=== PATIENT | female | born 1995 | race Caucasian/White ===

== ENCOUNTER 2021-03-23 12:05 | Emergency (ER) | payer BC ==
[~2021-03-23] VITALS: Ht 175 cm; Wt 99.0 kg
[2021-03-23 13:24] LABS: BASOPHILS % (AUTO) 0 % (0-10); EOSINOPHILS # (AUTO) 0.1 10^3/uL (0.0-0.3); EOSINOPHILS % (AUTO) 1 % (0-10); HEMATOCRIT 39 % (35-52); HEMOGLOBIN 13.2 g/dL (11.5-16.0); LYMPHOCYTES # (AUTO) 2.2 10^3/uL (1.0-4.0); LYMPHOCYTES % (AUTO) 21 % (12-44); MEAN CORPUSCULAR HEMOGLOBIN 30 pg (25-34); MEAN CORPUSCULAR HGB CONC 34 g/dL (32-36); MEAN CORPUSCULAR VOLUME 89 fL (80-99); MEAN PLATELET VOLUME 9.6 fL (9.0-12.2); MONOCYTES # (AUTO) 0.5 10^3/uL (0.0-1.0); MONOCYTES % (AUTO) 5 % (0-12); NEUTROPHILS # (AUTO) 7.5 10^3/uL (1.8-7.8); NEUTROPHILS % (AUTO) 73 % (42-75); PLATELET COUNT 301 10^3/uL (130-400); WHITE BLOOD COUNT 10.3 10^3/uL (4.3-11.0)
[2021-03-23 13:40] LABS: ALBUMIN 4.1 GM/DL (3.2-4.5)
[2021-03-23 13:41] LABS: CALCIUM 9.4 MG/DL (8.5-10.1)
[2021-03-23 13:43] LABS: TOTAL PROTEIN 6.9 GM/DL (6.4-8.2)
[2021-03-23 13:44] LABS: BILIRUBIN,TOTAL 0.3 MG/DL (0.1-1.0)
[2021-03-23 13:46] LABS: CREATININE SERUM 0.78 MG/DL (0.60-1.30)
[2021-03-23] MEDS ORDERED: HYDROcodone/APAP 5 MG/325 MG (LORTAB) TAB PO ONE (14:15)
--- NOTE | 2021-03-23 14:21 | Diagnostic Imaging Report ---
INDICATION: Vaginal bleeding and cramping. FINDINGS: The uterus measures 8.6 x 5.2 x 4.2 cm. No myometrial mass is identified. There is complex mobile debris throughout the endometrial canal. There is a cystic structure in the lower uterine segment near the endocervical canal, which may represent a partially collapsed gestational sac. There is a questionable yolk sac present within this collection. No definite pole is seen. This was mobile and did appear to pass during the transvaginal study. Right ovary measures 3.1 x 2.0 x 3.1 cm, and left ovary measures 3.6 x 3.0 x 3.4 cm. Left ovary does contain a 2.5 x 2.3 x 1.4 cm cyst. There is blood flow to the ovaries. No free fluid is seen. IMPRESSION: Abnormally thickened and heterogeneous endometrium containing mobile debris, likely representing blood products. There was a questionable gestational sac near the endocervical canal containing a yolk sac visualized during the study. This did not move through the endocervical canal and pass during the study. Features are suggestive of ongoing spontaneous . No adnexal is identified. No other abnormalities are seen apart from simple-appearing left ovarian cyst. Dictated by: Dictated on workstation # [id number]
--- NOTE | 2021-03-23 14:36 | ED GU-Female ---
General Chief Complaint: OB < 20 WEEKS Stated Complaint: VAGINAL BLEEDING,CRAMPING, 6-7 WEEKS PREG Nursing Triage Note: PT AMB TO [facility] PT CO OF STARTING OF BLEEDING AND SPOTTING AT APPROX 0900 THIS AM. PT ALSO HAVING CRAMPING. PT STATES IS APPROX 6-7 WEEKS Source: patient Exam Limitations: no limitations (LENNY LOWE) History of Present Illness Date Seen by Provider: Mar 23, 2021 Time Seen by Provider: 13:10 Initial Comments Patient is a 26-year-old female who presents to ED with lower abdominal cramping, vaginal bleeding. Last menstrual cycle was January 30. Started Velp cramping today with vaginal spotting described as bright red with heavier passing clots while sitting in the waiting room. Patient is G1, P0. Denies any urinary symptoms, vaginal discharge or concern for significant infection. She did have some vomiting few weeks ago which has resolved. No known medical problems. Patient does not currently have an OPERATIONAL INTELLIGENCE OFFICER. Patient believes she is 6 to 7 weeks with 3+ test out patiently. No known blood disorders. Kayode es fever, chills, chest pain, shortness of breath, headache, dizziness. (LENNY LOWE) Allergies and Home Medications Allergies Coded Allergies: Sulfa (Sulfonamide Antibiotics) (Verified Allergy, Unknown, 03/23/21) morphine (Verified Allergy, Unknown, 03/23/21) Patient Home Medication List Home Medication List Reviewed: Yes (LENNY LOWE) Hydrocodone/Acetaminophen (Hydrocodone-Acetamin 5-325 mg) 1 Each Tablet, 1 TAB PO Q4H PRN for PAIN-MODERATE (5-7) Prescribed by: MEGAN HAMM on 03/23/21 1518 Review of Systems Review of Systems Constitutional: No chills, No diaphoresis, No malaise, No weakness EENTM: No ear pain, No eye pain Respiratory: No cough, No hemoptysis, No short of breath Gastrointestinal: abdominal pain; No nausea, No vomiting Genitourinary: other (Vaginal bleeding) : Yes LMP: Jan 30, 2021 Musculoskeletal: No back pain, No joint pain, No joint swelling, No muscle pain Skin: No change in color, No change in hair/nails Psychiatric/Neurological: Denies Depressed, Denies Headache (LENNY LOWE) Past Dmjoomv-Tsvzgq-Vpvpma Hx Patient Social History Tobacco Use?: No Substance use?: No Alcohol Use?: No Pt feels they are or have been: No (LENNY LOWE) Past Medical History Last Menstrual Period: Jan 30, 2021 (LENNY LOWE) Physical Exam Vital Signs Vital Signs - First Documented 03/23/21 03/23/21 12:30 15:43 Temp 36.5 Pulse 88 Resp 18 B/P (MAP) 141/81 (101) Pulse Ox 97 O2 Delivery Room Air (TIMOTHY NORRIS MD) Vital Signs Capillary Refill : Less Than 3 Seconds (LENNY LOWE) Height, Weight, BMI Height: '" Weight: lbs. oz. kg; 32.00 BMI Method: General Appearance: WD/WN HEENT: PERRL/EOMI, normal ENT inspection, TMs normal, pharynx normal Neck: non-tender, full range of motion, supple Cardiovascular: regular rate, rhythm, no edema, no gallop, no JVD, no murmur Respiratory: lungs clear, normal breath sounds, no respiratory distress, no accessory muscle use Gastrointestinal: normal bowel sounds, non tender, soft, no organomegaly Back: normal inspection, no CVA tenderness, no vertebral tenderness Extremities: normal range of motion, non-tender, normal inspection, no pedal edema Skin: normal color, warm/dry (LENNY LOWE) Progress/Results/Core Measures Suspected Sepsis SIRS Temperature: Pulse: 88 Respiratory Rate: 18 Laboratory Tests 03/23/21 13:13: White Blood Count 10.3 Blood Pressure 141 /81 Mean: 101 Laboratory Tests 03/23/21 13:13: Creatinine 0.78, Platelet Count 301, Total Bilirubin 0.3 (LENNY LOWE) Results/Orders Lab Results Laboratory Tests Test 03/23/21 13:13 03/23/21 14:45 Range/Units White Blood Count 10.3 4.3-11.0 10^3/uL Red Blood Count 4.34 3.80-5.11 10^6/uL Hemoglobin 13.2 11.5-16.0 g/dL Hematocrit 39 35-52 % Mean Corpuscular Volume 89 80-99 fL Mean Corpuscular Hemoglobin 30 25-34 pg Mean Corpuscular Hemoglobin Concent 34 32-36 g/dL Red Cell Distribution Width 12.4 10.0-14.5 % Platelet Count 301 130-400 10^3/uL Mean Platelet Volume 9.6 9.0-12.2 fL Immature Granulocyte % (Auto) 0 % Neutrophils (%) (Auto) 73 42-75 % Lymphocytes (%) (Auto) 21 12-44 % Monocytes (%) (Auto) 5 0-12 % Eosinophils (%) (Auto) 1 0-10 % Basophils (%) (Auto) 0 0-10 % Neutrophils # (Auto) 7.5 1.8-7.8 10^3/uL Lymphocytes # (Auto) 2.2 1.0-4.0 10^3/uL Monocytes # (Auto) 0.5 0.0-1.0 10^3/uL Eosinophils # (Auto) 0.1 0.0-0.3 10^3/uL Basophils # (Auto) 0.0 0.0-0.1 10^3/uL Immature Granulocyte # (Auto) 0.0 0.0-0.1 10^3/uL Sodium Level 140 135-145 MMOL/L Potassium Level 4.0 3.6-5.0 MMOL/L Chloride Level 105 98-107 MMOL/L Carbon Dioxide Level 25 21-32 MMOL/L Anion Gap 10 5-14 MMOL/L Blood Urea Nitrogen 12 7-18 MG/DL Creatinine 0.78 0.60-1.30 MG/DL Estimat Glomerular Filtration Rate 91 BUN/Creatinine Ratio 15 Glucose Level 103 70-105 MG/DL Calcium Level 9.4 8.5-10.1 MG/DL Corrected Calcium 9.3 8.5-10.1 MG/DL Total Bilirubin 0.3 0.1-1.0 MG/DL Aspartate Amino Transf (AST/SGOT) 12 5-34 U/L Alanine Aminotransferase (ALT/SGPT) 21 0-55 U/L Alkaline Phosphatase 73 40-136 U/L Total Protein 6.9 6.4-8.2 GM/DL Albumin 4.1 3.2-4.5 GM/DL Human Chorionic Gonadotropin, Quant 937 H <5 MIU/ML Urine Color YELLOW Urine Clarity CLEAR Urine pH 6.5 5-9 Urine Specific [place] <=1.005 1.016-1.022 Urine Protein NEGATIVE NEGATIVE Urine Glucose (UA) NEGATIVE NEGATIVE Urine Ketones TRACE H NEGATIVE Urine Nitrite NEGATIVE NEGATIVE Urine Bilirubin NEGATIVE NEGATIVE Urine Urobilinogen 0.2 < = 1.0 MG/DL Urine Leukocyte Esterase NEGATIVE NEGATIVE Urine RBC (Auto) 3+ H NEGATIVE Urine RBC 10-25 H /HPF Urine WBC NONE /HPF Urine Crystals NONE /LPF Urine Bacteria NEGATIVE /HPF Urine Casts NONE /LPF Urine Mucus NEGATIVE /LPF Urine Culture Indicated NO Urine Test POSITIVE NEGATIVE (TIMOTHY NORRIS MD) Medications Given in ED Current Medications Medications Dose Ordered Sig/Marie Route Start Time Stop Time Status Last Admin Dose Admin Acetaminophen/ Hydrocodone Bitart 1 ea ONCE ONCE PO 03/23/21 14:15 03/23/21 14:16 DC 03/23/21 14:13 1 EA (TIMOTHY NORRIS MD) Vital Signs/I&O 03/23/21 03/23/21 12:30 15:43 Temp 36.5 Pulse 88 83 Resp 18 18 B/P (MAP) 141/81 (101) 128/77 Pulse Ox 97 98 O2 Delivery Room Air (TIMOTHY NORRIS MD) Vital Signs/I&O Capillary Refill : Less Than 3 Seconds (LENNY LOWE) Blood Pressure Mean: 101 Departure Communication (Admissions) Vaginal blood with clots noted through the vaginal canal. Ultrasound concerning for spontaneous . No evidence of adnexal mass. Patient beta quant 937. G1, P0. Lower abdominal discomfort. Patient Was given dose of pain medication. She is not anemic. Urinalysis negative for infection. Not concern for sexual transmitted infection. Recommend outpatient OPERATIONAL INTELLIGENCE OFFICER follow-up for further evaluation. Discharge with pain medication. If any worsening symptoms strongly recommend return back to ED. patient Rh+ (LENNY LOWE) Impression Primary Impression: Threatened miscarriage Disposition: 01 HOME, SELF-CARE Condition: Stable Departure-Patient Inst. Decision time for Depature: 15:06 (LENNY LOWE) Referrals: DEVANG LEE MD NO,LOCAL PHYSICIAN (PCP) Primary Care Physician Patient Instructions: Threatened Miscarriage (DC) Add. Discharge Instructions: Need to follow-up with OPERATIONAL INTELLIGENCE OFFICER for further evaluation. All discharge instructions reviewed with patient and/or family. Voiced understanding. Scripts Hydrocodone/Acetaminophen (Hydrocodone-Acetamin 5-325 mg) 1 Each Tablet 1 TAB PO Q4H PRN for PAIN-MODERATE (5-7), #8 TAB Prov: LENNY LOWE 03/23/21 ATTENDING PHYSICIAN NOTE: I was physically present as attending physician in the emergency department during the care of this patient, but I was not directly involved in the decision making or delivery of care for this patient. (TIMOTHY NORRIS MD) LENNY LOWE Mar 23, 2021 14:36 TIMOTHY NORRIS MD Mar 23, 2021 20:24
[2021-03-23 14:52] LABS: BILIRUBIN,URINE NEGATIVE (NEGATIVE); CLARITY,URINE CLEAR; COLOR,URINE YELLOW; GLUCOSE, URINE (UA) NEGATIVE (NEGATIVE); KETONES,URINE TRACE (NEGATIVE); LEUKOCYTE ESTERASE ,URINE NEGATIVE (NEGATIVE); NITRITE,URINE NEGATIVE (NEGATIVE); PH,URINE 6.5 (5-9); PROTEIN,URINE NEGATIVE (NEGATIVE)
[2021-03-23 14:58] LABS: BACTERIA,URINE NEGATIVE /HPF
[2021-03-23] MEDS ORDERED: ACHD5005 PO (15:17)
[2021-03-23 15:43] VITALS: BP 128/77
== END 2021-03-23 15:43 | disposition home or self-care (01) ==
LOC: ER 12:09
DX: O20.0 Threatened abortion (principal); Z3A.00 Weeks of gestation of pregnancy not specified
CPT/HCPCS: 36415; 76801; 76817; 80053; 81000; 84702; 84703; 85025; 86900; 86901

== ENCOUNTER → 2021-08-05 | Outpatient (CLI) | payer BC ==
[~2021-08-05] MED LIST: ACHD5005 PO
== END ==
LOC: LABNPT 11:45
PROVIDERS: ATTEND Obstetrics & Gynecology
DX: Z32.01 Encounter for pregnancy test, result positive (principal)

== ENCOUNTER → 2021-08-19 | Outpatient (CLI) | payer BC ==
--- NOTE | 2021-08-19 13:00 | Diagnostic Imaging Report ---
INDICATION: survey. TECHNIQUE: Multiple real-time grayscale images were obtained over the gravid uterus. COMPARISON: None FINDINGS: There is a single live fetus in a cephalic presentation. heart rate was recorded at 156 bpm. Placenta is posterior and fundal. Amniotic fluid volume is normal. Cervical length is 3.5 cm. survey demonstrates kidneys, bladder and stomach to be unremarkable. The brain is unremarkable. There is a four-chamber heart. There is a three-vessel cord with normal insertion. spine is unremarkable. Biometrical measurements are as follows: Biparietal 4.89 cm, age 20 weeks 6 days. Head circumference 18.43 cm, age 20 weeks 6 days. Abdominal circumference 15.95 cm, age 21 weeks 1 days. Femur length 3.34 cm, age 20 weeks 4 days. Sonographic estimate age: 20 weeks 6 days. Sonographic estimated date of delivery: 12/31/2021. Estimated Weight: 378 gm (+/- 56 gm). LMP percentile: 81%. heart rate: 156 beats per minute. number: 1 of 1. IMPRESSION: Single live IUP measuring 20 weeks 6 days gestational age. Estimated date of confinement sonographically is 12/31/2021. Dictated by: Dictated on workstation # [id number]
== END ==
LOC: RAD 10:00
PROVIDERS: ATTEND Obstetrics & Gynecology
DX: Z34.02 Encounter for supervision of normal first pregnancy, second trimester (principal); Z3A.20 20 weeks gestation of pregnancy
CPT/HCPCS: 76805

== ENCOUNTER 2021-12-29 19:00 | Inpatient (IN) | payer BC ==
[~2021-12-29] VITALS: Ht 174 cm; Wt 111.3 kg
[2021-12-29] MEDS ORDERED: TERBUTALINE INJ 1 MG/ML (BRETHINE) AMP SC PRN (19:30)
[2021-12-29] MEDS ORDERED: NS IV 1000 ML 1,000 ML ONE (19:36)
[2021-12-29 19:43] VITALS: BP 138/82
[2021-12-29] MEDS ORDERED: NS IV 1000 ML 1,000 ML IV SCH (20:00)
[2021-12-29 20:11] LABS: BASOPHILS % (AUTO) 0 % (0-10); EOSINOPHILS # (AUTO) 0.1 10^3/uL (0.0-0.3); EOSINOPHILS % (AUTO) 1 % (0-10); HEMATOCRIT 35 % (35-52); LYMPHOCYTES # (AUTO) 2.6 10^3/uL (1.0-4.0); LYMPHOCYTES % (AUTO) 20 % (12-44); MEAN CORPUSCULAR HEMOGLOBIN 30 pg (25-34); MEAN CORPUSCULAR HGB CONC 34 g/dL (32-36); MEAN CORPUSCULAR VOLUME 88 fL (80-99); MEAN PLATELET VOLUME 10.4 fL (9.0-12.2); MONOCYTES # (AUTO) 0.7 10^3/uL (0.0-1.0); MONOCYTES % (AUTO) 6 % (0-12); NEUTROPHILS # (AUTO) 9.1 10^3/uL (1.8-7.8); NEUTROPHILS % (AUTO) 72 % (42-75); PLATELET COUNT 244 10^3/uL (130-400); WHITE BLOOD COUNT 12.7 10^3/uL (4.3-11.0)
[2021-12-29 20:23] LABS: CLARITY,URINE CLEAR; COLOR,URINE YELLOW
[2021-12-29 20:24] LABS: BILIRUBIN,URINE NEGATIVE (NEGATIVE); GLUCOSE, URINE (UA) NEGATIVE (NEGATIVE); KETONES,URINE NEGATIVE (NEGATIVE); LEUKOCYTE ESTERASE ,URINE NEGATIVE (NEGATIVE); NITRITE,URINE NEGATIVE (NEGATIVE); PROTEIN,URINE NEGATIVE (NEGATIVE)
[2021-12-29 20:25] LABS: BACTERIA,URINE MODERATE /HPF; RBC,URINE 0-2 /HPF; SQUAMOUS EPITHELIAL CELL,UR 0-2 /HPF; WBC,URINE 0-2 /HPF
[2021-12-29] MEDS ORDERED: D5 LR IV SOLUTION 1,000 ML IV ONE (20:53)
[2021-12-29] MEDS: D5 LR IV SOLUTION 1,000 ML IV SCH (20:58)
[2021-12-29 23:50] VITALS: BP 132/84
[2021-12-30] VITALS (32 sets, daily range): BP systolic 107–148; BP diastolic 52–85
[2021-12-30] MEDS ORDERED: HYDROmorphone 2 MG/ML VIAL (DILAUDID) IV ONE ×2 (02:00→06:15)
[2021-12-30] MEDS ORDERED: HYDROmorphone 2 MG/ML VIAL (DILAUDID) ONE ×2 (02:04→06:11)
[2021-12-30] MEDS: CATHETER FLUSH 10 ML SYR IV SCH ×3 (02:16→14:34)
[2021-12-30] MEDS: D5 LR IV SOLUTION 1,000 ML IV SCH ×2 (04:56→11:07)
[2021-12-30] MEDS ORDERED: OXYTOCIN PRE-MIX DRIP 500 ML IV ONE (06:11)
[2021-12-30] MEDS ORDERED: OXYTOCIN PRE-MIX DRIP 500 ML IV SCH (06:15)
--- NOTE | 2021-12-30 07:41 | History & Physical-OB ---
DONOVAN ARIZAULTON 12/30/21 0741: OB - Chief Complaint & HPI Date/Time Date of Admission: Date of Admission: Dec 29, 2021 at 19:15 Date seen by a Provider: Dec 30, 2021 Time Seen by a Provider: 07:15 Chief Complaint/History OB-Reason for Admission/Chief: Induction of Labor Hx : 1 Hx Para: 0 Expected Date of Delivery: Jan 05, 2022 Gestational Age in Weeks: 39 Gestational Age in Days: 1 Indication for induction: other (elective) History of Labs GBS - RNI Hep B - RPR - HIV - Allergies and Home Medications Allergies Coded Allergies: Sulfa (Sulfonamide Antibiotics) (Verified Allergy, Unknown, 03/23/21) morphine (Verified Allergy, Unknown, 03/23/21) Patient Home Medication List Home Medication List Reviewed: Yes Hydrocodone/Acetaminophen (Hydrocodone-Acetamin 5-325 mg) 1 Each Tablet, 1 TAB PO Q4H PRN for PAIN-MODERATE (5-7) Prescribed by: MEGAN HAMM on 03/23/21 1518 OB - History Hx of Present Care: Yes Ultrasounds: Normal mid trimester US Obstetrical Complications: None Medical Complications: None Information Induced Hypertension: No Maternal Gestational Diabetes: No Hemorrhage: No Obstetrical History Hx : 1 Hx Para: 0 Hx Complication: No Hx Maternal Gestational Diabet: No Hx Hemorrhage: No Patient Past Medical History allergice to pertussis vaccine misscarage last year (2020) Rubella not immune Social History/Family History Alcohol Use: Denies Use Recreational Drug Use: No Smoking Cessation: Never smoker 2nd Hand Smoke Exposure: No Immunizations Influenza Vaccine Up-to-Date: No; Not Current Hepatitis A: Yes Hepatitis B: Yes Tetanus Booster (TDap): Unknown (allergic to vaccine) Rubella: not immune RPR/VDRL: Negative GBS Status: Negative HBsAG: Negative OB - Admission Exam Physical Exam Vitals: Vital Signs 12/30/21 12/30/21 03:50 06:25 Temp 36.4 Pulse 69 Resp 16 B/P (MAP) 128/74 (92) Pulse Ox 99 O2 Delivery Room Air HEENT: NCAT Heart: Rhythm Normal Lungs: Clear Abdomen: Gravid Extremities: Normal Cervical Dilatation: 1cm (@0700) Membranes: Ruptured Heart Rate: 130's Decelerations: No Decelerations Contractions on Admission: >10 Minutes Apart Intensity: Firm Labs Laboratory Tests Test 12/29/21 19:45 Range/Units White Blood Count 12.7 H 4.3-11.0 10^3/uL Red Blood Count 4.03 3.80-5.11 10^6/uL Hemoglobin 12.0 11.5-16.0 g/dL Hematocrit 35 35-52 % Mean Corpuscular Volume 88 80-99 fL Mean Corpuscular Hemoglobin 30 25-34 pg Mean Corpuscular Hemoglobin Concent 34 32-36 g/dL Red Cell Distribution Width 14.4 10.0-14.5 % Platelet Count 244 130-400 10^3/uL Mean Platelet Volume 10.4 9.0-12.2 fL Immature Granulocyte % (Auto) 1 % Neutrophils (%) (Auto) 72 42-75 % Lymphocytes (%) (Auto) 20 12-44 % Monocytes (%) (Auto) 6 0-12 % Eosinophils (%) (Auto) 1 0-10 % Basophils (%) (Auto) 0 0-10 % Neutrophils # (Auto) 9.1 H 1.8-7.8 10^3/uL Lymphocytes # (Auto) 2.6 1.0-4.0 10^3/uL Monocytes # (Auto) 0.7 0.0-1.0 10^3/uL Eosinophils # (Auto) 0.1 0.0-0.3 10^3/uL Basophils # (Auto) 0.0 0.0-0.1 10^3/uL Immature Granulocyte # (Auto) 0.1 0.0-0.1 10^3/uL Urine Color YELLOW Urine Clarity CLEAR Urine pH 6.0 5-9 Urine Specific [place] <=1.005 1.016-1.022 Urine Protein NEGATIVE NEGATIVE Urine Glucose (UA) NEGATIVE NEGATIVE Urine Ketones NEGATIVE NEGATIVE Urine Nitrite NEGATIVE NEGATIVE Urine Bilirubin NEGATIVE NEGATIVE Urine Urobilinogen 0.2 < = 1.0 MG/DL Urine Leukocyte Esterase NEGATIVE NEGATIVE Urine RBC (Auto) NEGATIVE NEGATIVE Urine RBC 0-2 /HPF Urine WBC 0-2 /HPF Urine Squamous Epithelial Cells 0-2 /HPF Urine Renal Epithelial Cells NONE /HPF Urine Crystals NONE /LPF Urine Bacteria MODERATE H /HPF Urine Casts NONE /LPF Urine Mucus NEGATIVE /LPF Urine Culture Indicated YES OB - Assessment/Plan/Diagnosis Assessment Assessment: induction of labor Admission Dx 23 F induction of labor Admission Status: Inpatient Order (span 2 midnights) Reason for Inpatient Admission: 25 F induction of labor Plan Plan: Induction Induction Method: per Pitocin Protocol JOSEF DHILLON DO 12/30/21 1306: Allergies and Home Medications Allergies Coded Allergies: Sulfa (Sulfonamide Antibiotics) (Verified Allergy, Unknown, 03/23/21) morphine (Verified Allergy, Unknown, 03/23/21) Patient Home Medication List Hydrocodone/Acetaminophen (Hydrocodone-Acetamin 5-325 mg) 1 Each Tablet, 1 TAB PO Q4H PRN for PAIN-MODERATE (5-7) Prescribed by: MEGAN HAMM on 03/23/21 1518 OB - Assessment/Plan/Diagnosis Plan Other Plan Verification and Attestation of Medical Student E/M Service A medical student performed and documented this service in my presence. I reviewed and verified all information documented by the medical student and made modifications to such information, when appropriate. I personally performed the physical exam and medical decision making. Josef Dhillon, Dec 30, 2021,13:07 ILIR ARIZA Dec 30, 2021 07:41 JOSEF DHILLON DO Dec 30, 2021 13:06
[2021-12-30] MEDS ORDERED: LACTATED RINGERS 1,000 ML IV ONE (08:07)
[2021-12-30] MEDS ORDERED: fentaNYL 2 mcg/ml BUPIVA 0.125 100 ML ONE (08:07)
[2021-12-30] MEDS ORDERED: fentaNYL INJ 100 MCG/2 ML AMP ONE (08:34)
[2021-12-30] MEDS ORDERED: LIDOCAINE PF 2% 5 ML (XYLOCAINE) VIAL ONE (08:34)
[2021-12-30] MEDS ORDERED: fentaNYL 2 mcg/ml BUPIVA 0.125 100 ML EPI SCH (09:15)
[2021-12-30] MEDS ORDERED: METOCLOPRAMIDE INJ 10 MG/2 ML (REGLAN) IV PRN (09:15)
[2021-12-30] MEDS ORDERED: ONDANSETRON 4 MG/2 ML (SDV) Z0FRAN IV PRN (09:15)
[2021-12-30] MEDS ORDERED: NALOXONE 0.4 MG/ML 1 ML (NARCAN) VIAL IV PRN ×3 (09:15→13:15)
[2021-12-30] MEDS ORDERED: diphenhydrAMINE 50 MG/ML INJ (BENADRYL) IV PRN (09:15)
[2021-12-30] MEDS ORDERED: LACTATED RINGERS 1,000 ML IV SCH (09:15)
--- NOTE | 2021-12-30 13:02 | OB Labor & Delivery Record ---
L&D History Date of Service Date of Service: Dec 30, 2021 History Expected Date of Delivery: Jan 05, 2022 Gestational Age in Weeks: 39 Hx : 1 Hx Para: 0 Complications Events: Routine care Operative Indications (Cesarea: N/A-Vaginal Delivery Intrapartal Events: None L&D Stage1 Stage One Onset of Labor - Date: Dec 30, 2021 Monitors and Tracing Monitor Mode: External Heart Rate: 145 Monitor Accelerations: Uniform Station: -1 Rating Specialist Variability: Average (6-10) Short Term Variability: Present Presentation: Vertex Vital Signs VS - Last 72 Hours, by Label 12/29/21 12/29/21 12/29/21 12/29/21 19:43 19:43 21:44 23:50 Temp 36.8 36.8 36.3 Pulse 87 87 58 64 Resp 20 20 18 20 B/P (MAP) 138/82 (100) 132/84 (100) Pulse Ox 97 97 98 O2 Delivery Room Air Room Air Room Air Room Air 12/30/21 12/30/21 12/30/21 12/30/21 02:19 02:24 02:30 02:35 Pulse 63 69 68 68 Pulse Ox 97 97 96 97 O2 Delivery Room Air Room Air Room Air Room Air 12/30/21 12/30/21 12/30/21 12/30/21 02:40 02:45 02:50 02:55 Pulse 72 64 67 79 Pulse Ox 97 96 97 96 O2 Delivery Room Air Room Air Room Air Room Air 12/30/21 12/30/21 12/30/21 12/30/21 03:00 03:05 03:10 03:20 Pulse 63 79 68 67 Pulse Ox 97 97 97 97 O2 Delivery Room Air Room Air Room Air Room Air 12/30/21 12/30/21 12/30/21 12/30/21 03:25 03:30 03:35 03:40 Pulse 66 63 61 76 Pulse Ox 98 98 97 98 O2 Delivery Room Air Room Air Room Air Room Air 12/30/21 12/30/21 12/30/21 12/30/21 03:45 03:50 06:25 07:15 Temp 36.9 36.4 36.7 Pulse 58 69 64 Resp 16 18 B/P (MAP) 128/74 (92) 132/80 (97) Pulse Ox 98 99 100 O2 Delivery Room Air Room Air Room Air 12/30/21 12/30/21 12/30/21 12/30/21 07:30 07:45 08:00 08:10 Temp 36.7 Pulse 64 64 74 65 Resp 18 18 18 18 B/P (MAP) 132/80 (97) 141/85 (103) 144/71 (95) 120/73 (89) Pulse Ox 100 100 100 100 O2 Delivery Room Air Room Air Room Air Room Air 12/30/21 12/30/21 12/30/21 12/30/21 08:30 08:40 08:43 08:46 Temp 36.6 Pulse 78 56 56 66 Resp 18 18 18 18 B/P (MAP) 139/62 (87) 139/62 (87) 130/57 (81) 137/67 (90) Pulse Ox 100 99 98 98 O2 Delivery Room Air Room Air Room Air Room Air 12/30/21 12/30/21 12/30/21 12/30/21 08:49 08:52 08:58 09:04 Pulse 53 68 71 58 Resp 18 18 18 18 B/P (MAP) 126/79 (95) 120/67 (84) 122/67 (85) 120/69 (86) Pulse Ox 99 95 95 97 O2 Delivery Room Air Room Air Room Air Room Air 12/30/21 12/30/21 12/30/21 12/30/21 09:10 09:15 09:20 09:25 Pulse 66 65 64 74 Resp 18 18 18 18 B/P (MAP) 119/62 (81) 134/65 (88) 117/66 (83) 117/68 (84) Pulse Ox 96 96 96 97 O2 Delivery Room Air Room Air Room Air Room Air 12/30/21 12/30/21 12/30/21 12/30/21 10:00 10:15 10:48 11:00 Temp 36.6 36.6 36.8 Pulse 71 67 59 61 Resp 18 18 18 18 B/P (MAP) 131/78 (95) 107/52 (70) 137/79 (98) 127/71 (89) Pulse Ox 97 97 97 97 O2 Delivery Room Air Room Air Room Air Room Air 12/30/21 12/30/21 11:15 11:34 Pulse 63 67 Resp 18 18 B/P (MAP) 127/69 (88) 114/63 (80) Pulse Ox 96 98 O2 Delivery Room Air Room Air Rupture of Membranes Spontaneous Ruture of Membrane: Yes Amniotic Membrane Rupture Time: 0600 Amniotic Membrane Fluid Desc.: Clear Vaginal Bleeding Description: Normal Show Induction/Anesthesia Epidural Cath Placement - Time: 0847 Progress/Notes Patient admitted for IOL at 39 weeks. Misoprostol given overnight. She had SROM this AM, and started on pitocin augmentation to max dose of 6 mu min. SHe progressed after getting her epidural to complete and + 3 station L&D Stage2 Stage Two Stage II Date: Dec 30, 2021 Monitors and Tracing Monitor Mode: External Heart Rate: 145 Monitor Accelerations: Uniform Monitor Decelerations: Variable Mcc Variability: Average (6-10) Short Term Variability: Present Position: Right Occiput Anterior Presentation: Vertex Cord Descript/Complications Cord Vessel Description: 3 Vessels Delivery Type Delivery Method: Spontaneous Vaginal Anterior Shoulder: Left Episiotomy/Perineal Laceration Episiotomy Description: Perineal Extension/lac, Vaginal Extension/lac, 2nd degree Degree (describe repair) laceration repaired using 3-0 rapide in usual fashion Condition of Delivery 1 minute Comment: 8 5 minute Comment: 9 Notes Live female infant weight 7lbs 11oz Condition of Infant Condition of : Living Exam: No Observed Abnormalities Resuscitation Resuscitation: N/A - Spontaneous Resp L&D Stage3 Stage Three Stage III Date: Dec 30, 2021 Pictocin Pitocin Administration mu/min: 6 Pitocin ml/hr: 6 Pitocin Administration Comment: mu wide open after delivery of placenta Placenta Delivery Placenta Delivery: Spontaneous Delivery Summary Summary Estimated blood loss (mL): 350 Attending at delivery: Milton Dhillon DO Condition of Delivery Examined: Cervix Examined, Uterus Explored Post Hemorrhage: No Condition of Mother stable Condition of (s) stable MILTON DHILLON DO Dec 30, 2021 13:02
[2021-12-30] MEDS ORDERED: BENZOCAINE/MENTHOL (DERMOPLAST) 56 ML CAN TP PRN (13:15)
[2021-12-30] MEDS ORDERED: DIBUCAINE 1% OINTMENT 30 GM TUBE TOP PRN (13:15)
[2021-12-30] MEDS ORDERED: TETANUS,DIPTH,PERTUSS P/F (BOOSTRIX) 0.5 ML VIAL IM ONE (13:15)
[2021-12-30] MEDS ORDERED: WITCH HAZEL(TUCKS) 40 EA JAR TOP PRN (13:15)
[2021-12-30] MEDS ORDERED: MEASLES,MUMPS,RUBELLA 1 EA INJ SQ ONE (13:15)
[2021-12-30] MEDS: OXYTOCIN PRE-MIX DRIP 500 ML IV SCH ×2 (13:26→16:19)
[2021-12-30] MEDS ORDERED: CATHETER FLUSH 10 ML SYR IV SCH (14:00)
[2021-12-30] MEDS: IBUPROFEN 600 MG (MOTRIN) TAB PO SCH ×2 (14:05→19:54)
[2021-12-30] MEDS ORDERED: MEASLES,MUMPS,RUBELLA 1 EA INJ ONE (17:36)
[2021-12-30] MEDS: DOCUSATE SODIUM 100 MG (COLACE) CAP PO SCH (19:54)
[2021-12-31 00:19] VITALS: BP 110/57
[2021-12-31 03:42] VITALS: BP 112/68
[2021-12-31] MEDS: IBUPROFEN 600 MG (MOTRIN) TAB PO SCH (03:43)
[2021-12-31 05:55] LABS: BASOPHILS % (AUTO) 0 % (0-10); EOSINOPHILS # (AUTO) 0.1 10^3/uL (0.0-0.3); EOSINOPHILS % (AUTO) 1 % (0-10); HEMATOCRIT 31 % (35-52); HEMOGLOBIN 10.2 g/dL (11.5-16.0); LYMPHOCYTES # (AUTO) 2.6 10^3/uL (1.0-4.0); LYMPHOCYTES % (AUTO) 22 % (12-44); MEAN CORPUSCULAR HEMOGLOBIN 29 pg (25-34); MEAN CORPUSCULAR HGB CONC 33 g/dL (32-36); MEAN CORPUSCULAR VOLUME 89 fL (80-99); MEAN PLATELET VOLUME 10.5 fL (9.0-12.2); MONOCYTES # (AUTO) 0.7 10^3/uL (0.0-1.0); MONOCYTES % (AUTO) 6 % (0-12); NEUTROPHILS # (AUTO) 8.1 10^3/uL (1.8-7.8); NEUTROPHILS % (AUTO) 70 % (42-75); PLATELET COUNT 187 10^3/uL (130-400); WHITE BLOOD COUNT 11.7 10^3/uL (4.3-11.0)
--- NOTE | 2021-12-31 06:50 | Postpartum Progress Note ---
ILIR ARIZA 12/31/21 0650: Note Note Day # 1 Subjective: Patient is without complaints. Ambulating, voiding. Tolerating a regular diet without nausea or vomiting. Normal lochia. Pain is well controlled with oral pain medications. Breast feeding w/o complaints. Objective: VSS afebrile Hgb 10.2 Physical Exam: General - Alert and oriented, no apparent distress Abdomen - Soft, appropriately tender to palpation, non-distended, fundus firm at umbilicus Extremities - no edema, negative Amanda's bilaterally Assessment: 24 post- day # 1, status post normal vaginal delivery. Recovering well, hemodynamically stable Plan: Routine care. Encourage breast feeding. Encourage ambulation. Ferrous sulfate supplementation. Plan for discharge tomorrow Vitals - Labs Vital Signs - I&O Vital Signs Date Time Temp Pulse Resp B/P (MAP) Pulse Ox O2 Delivery O2 Flow Rate FiO2 12/31/21 03:42 36.9 81 16 112/68 (83) 97 Room Air 12/31/21 00:19 36.6 74 18 110/57 (74) 97 Room Air 12/30/21 19:50 36.8 70 16 148/83 (104) 99 Room Air 12/30/21 15:15 36.7 78 18 118/74 (89) 97 Room Air 12/30/21 14:45 86 18 117/67 (84) 99 12/30/21 14:15 73 18 130/78 (95) 98 12/30/21 13:45 55 18 119/79 (92) 98 12/30/21 13:30 63 18 124/74 (91) 99 12/30/21 13:15 63 18 124/74 (91) 99 12/30/21 13:00 36.8 55 18 119/79 (92) 99 12/30/21 11:34 67 18 114/63 (80) 98 Room Air 12/30/21 11:15 63 18 127/69 (88) 96 Room Air 12/30/21 11:00 36.8 61 18 127/71 (89) 97 Room Air 12/30/21 10:48 36.6 59 18 137/79 (98) 97 Room Air 12/30/21 10:15 67 18 107/52 (70) 97 Room Air 12/30/21 10:00 36.6 71 18 131/78 (95) 97 Room Air 12/30/21 09:25 74 18 117/68 (84) 97 Room Air 12/30/21 09:20 64 18 117/66 (83) 96 Room Air 12/30/21 09:15 65 18 134/65 (88) 96 Room Air 12/30/21 09:10 66 18 119/62 (81) 96 Room Air 12/30/21 09:04 58 18 120/69 (86) 97 Room Air 12/30/21 08:58 71 18 122/67 (85) 95 Room Air 12/30/21 08:52 68 18 120/67 (84) 95 Room Air 12/30/21 08:49 53 18 126/79 (95) 99 Room Air 12/30/21 08:46 66 18 137/67 (90) 98 Room Air 12/30/21 08:43 56 18 130/57 (81) 98 Room Air 12/30/21 08:40 56 18 139/62 (87) 99 Room Air 12/30/21 08:30 36.6 78 18 139/62 (87) 100 Room Air 12/30/21 08:10 65 18 120/73 (89) 100 Room Air 12/30/21 08:00 74 18 144/71 (95) 100 Room Air 12/30/21 07:45 64 18 141/85 (103) 100 Room Air 12/30/21 07:30 36.7 64 18 132/80 (97) 100 Room Air 12/30/21 07:15 36.7 64 18 132/80 (97) 100 Room Air I & O 12/31/21 07:00 Intake Total 2000 ml Balance 2000 ml Labs Laboratory Tests 12/31/21 05:17: White Blood Count 11.7H, Red Blood Count 3.48L, Hemoglobin 10.2L, Hematocrit 31L , Mean Corpuscular Volume 89, Mean Corpuscular Hemoglobin 29, Mean Corpuscular Hemoglobin Concent 33, Red Cell Distribution Width 14.4, Platelet Count 187, Mean Platelet Volume 10.5, Immature Granulocyte % (Auto) 1, Neutrophils (%) (Auto) 70, Lymphocytes (%) (Auto) 22, Monocytes (%) (Auto) 6, Eosinophils (%) (Auto) 1, Basophils (%) (Auto) 0, Neutrophils # (Auto) 8.1H, Lymphocytes # (Auto) 2.6, Monocytes # (Auto) 0.7, Eosinophils # (Auto) 0.1, Basophils # (Auto) 0.0, Immature Granulocyte # (Auto) 0.1 Microbiology 12/29/21 Urine Culture - Final, Complete Gram Pos Mixed Bacterial Odalis JOSEF DHILLON DO 12/31/21 0730: Note Note Diagnosis: Acute blood loss anemia Verification and Attestation of Medical Student E/M Service A medical student performed and documented this service in my presence. I reviewed and verified all information documented by the medical student and made modifications to such information, when appropriate. I personally performed the physical exam and medical decision making. Josef Dhillon, Dec 31, 2021,07:30 ILIR ARIZA Dec 31, 2021 06:50 JOSEF DHILLON DO Dec 31, 2021 07:30
[2021-12-31] MEDS ORDERED: PRENATAL VITAMIN 1 EA TAB PO SCH (07:00)
--- NOTE | 2021-12-31 07:54 | Anesthesia-Regional Post-Op ---
Regional Patient Condition Mental Status: Alert, Oriented x3 Circulation: Same as Pre-Op Headache: Absent Sensation: Full Recovery Motor Block: Absent Post Op Complications Complications None Follow Up Care/Instructions Patient Instructions None needed. Anesthesia/Patient Condition Patient is doing well, no complaints, stable vital signs, no apparent adverse anesthesia problems. No complications reported per nursing. DEX PELAYO CRNA Dec 31, 2021 07:54
[2021-12-31 08:05] VITALS: BP 134/74
[2021-12-31] MEDS: DOCUSATE SODIUM 100 MG (COLACE) CAP PO SCH (08:50)
--- NOTE | 2021-12-31 08:53 | Discharge Inst-Women's Service ---
Discharge Inst-Women's Serv Depart Medication/Instructions New, Converted or Re-Newed RX: Transmitted to Pharmacy Final Diagnosis PPD 1 NVD Problems Reviewed?: Yes Consults/Follow Up Additional Follow Up: Yes Orders/Referrals Dr. Dhillon in 6 weeks Activity Activity: Activity as Tolerated Driving Instructions: No Driving for 1 Week NO SMOKING: NO SMOKING Nothing Inside Vagina: No Douching, No [place], No Tampons Diet Discharge Diet: No Restrictions Symptoms to Report to : Bleeding Excessive, Pain Increased, Fever Over 101 Degrees F, Vaginal Bleeding Increase, Questions/Concerns For Any Problems or Questions: Contact Your Physician MILTON DHILLON DO Dec 31, 2021 08:53
[2021-12-31] MEDS ORDERED: IBUP-844 PO (08:54)
[2021-12-31] MEDS ORDERED: DOCU100C37 PO (08:54)
[2021-12-31] MEDS ORDERED: FERR325T24 PO (08:54)
[2021-12-31] MEDS ORDERED: DIBU30OI TOP (08:54)
[2021-12-31] MEDS ORDERED: BENZ78AE5 TP (08:54)
[2021-12-31] MEDS ORDERED: FERROUS SULF 325 MG (IRON) TAB PO SCH (09:00)
[2021-12-31 12:02] VITALS: BP 118/72
[2021-12-31 16:35] VITALS: BP 134/74
== END 2021-12-31 16:35 | disposition home or self-care (01) | DRG 806 ==
LOC: LDRP 19:15
PROVIDERS: ADMIT Obstetrics & Gynecology; ATTEND Obstetrics & Gynecology
PROC: 10E0XZZ Delivery of Products of Conception, External Approach (ICD-10-PCS; principal; 2021-12-29)
PROC: 0KQM0ZZ Repair Perineum Muscle, Open Approach (ICD-10-PCS; 2021-12-29)
PROC: 3E033VJ Introduction of Other Hormone into Peripheral Vein, Percutaneous Approach (ICD-10-PCS; 2021-12-29)
DX: O70.1 Second degree perineal laceration during delivery (principal); D62 Acute posthemorrhagic anemia; Z37.0 Single live birth; Z3A.39 39 weeks gestation of pregnancy; O90.81 Anemia of the puerperium
CPT/HCPCS: 36415; 81000; 85025; 86850; 86900; 86901; 87088; 90707

== ENCOUNTER 2022-06-21 06:27 | Emergency (ER) | payer BC ==
[~2022-06-21] VITALS: Ht 175.3 cm; Wt 104.3 kg
[~2022-06-21 06:27] MED LIST changes: +BENZ78AE5 TP; +DIBU30OI TOP; +DOCU100C37 PO; +FERR325T24 PO; +IBUP-844 PO
--- NOTE | 2022-06-21 06:57 | ED Dyspnea ---
General Stated Complaint: SOB Source of Information: Patient Exam Limitations: No Limitations History of Present Illness Date Seen by Provider: Jun 21, 2022 Time Seen by Provider: 06:57 Initial Comments Patient is a 27-year-old female who presents to the emergency department today with a chief complaint of 3 days of having cough, congestion. She has had a right temporal headache also left occipitoparietal headache since yesterday. She has been taking Tylenol without any relief of symptoms. Today she had chest discomfort with her cough. Mild nausea with a headache. No abdominal pain. No dysuria urgency frequency. No diarrhea. She has diffuse body aches. She is not COVID vaccinated. She is not flu vaccinated. She does have occasional migraines but they usually resolve with Tylenol. Denies visual changes, unilateral weakness numbness or tingling. All other review of systems reviewed and negative except as stated. Allergies and Home Medications Allergies Coded Allergies: Sulfa (Sulfonamide Antibiotics) (Verified Allergy, Unknown, 03/23/21) morphine (Verified Allergy, Unknown, 03/23/21) Patient Home Medication List Home Medication List Reviewed: Yes Benzocaine/Menthol (Dermoplast Pain Relieving [place]) 20 %-0.5 % Aerosol, 1 EA TP UD PRN for PAIN- SEE INSTRUCTIONS Prescribed by: MILTON DHILLON on 12/31/21 0854 Dibucaine (Dibucaine) 1 % Oint, 1 GM TOP UD PRN for PAIN- SEE INSTRUCTIONS Prescribed by: MILTON DHILLON on 12/31/21 0854 Docusate Sodium (Docusate Sodium) 100 Mg Capsule, 100 MG PO BID PRN for CONSTIPATION-1ST LINE Prescribed by: MILTON DHILLON on 12/31/21 0854 Ferrous Sulfate (Ferosul) 325 Mg (65 Mg Iron) Tablet, 325 MG PO DAILY Prescribed by: MILTON DHILLON on 12/31/21 08 Ibuprofen (Ibu) 600 Mg Tablet, 600 MG PO Q6H Prescribed by: MILTON HDILLON on 12/31/21 0854 Review of Systems Review of Systems Constitutional: malaise EENTM: nose congestion Respiratory: cough, short of breath Cardiovascular: no symptoms reported Gastrointestinal: nausea Genitourinary: no symptoms reported : No LMP: May 24, 2022 Musculoskeletal: no symptoms reported Skin: no symptoms reported Psychiatric/Neurological: Headache All Other Systems Reviewed Negative Unless Noted: Yes Past Bsbjnoa-Fszgdo-Ucvddj Hx Immunizations Up To Date Tetanus Booster (TDap): Unknown Physical Exam Vital Signs Vital Signs - First Documented Capillary Refill : Height, Weight, BMI Height: '" Weight: lbs. oz. kg; 36.76 BMI Method: General Appearance: No Apparent Distress, WD/WN HEENT: PERRL/EOMI, TMs Normal, Pharynx Normal, Other (Dry mucous membranes) Neck: Normal Inspection, Non Tender, Supple Respiratory: No Accessory Muscle Use, No Respiratory Distress, Other (Coarse lower airway sounds auscultated posteriorly) Cardiovascular: Regular Rate, Rhythm, Normal Peripheral Pulses Gastrointestinal: Non Tender, Soft Extremity: Normal Inspection, Normal Range of Motion Neurologic/Psychiatric: Alert, Oriented x3, No Motor/Sensory Deficits, Normal Mood/Affect, hasher operator II-XII Norm as Tested Skin: Normal Color, Warm/Dry Progress/Results/Core Measures Results/Orders Lab Results Laboratory Tests Test 06/21/22 06:50 Range/Units Influenza Type A (RT-PCR) Not Detected Not Detecte Influenza Type B (RT-PCR) Not Detected Not Detecte SARS-CoV-2 RNA (RT-PCR) Not Detected Not Detecte My Orders Orders - MARK JACKSON MD Ed Iv/Invasive Line Start (06/21/22 07:03) Covid 19 Inhouse Test (06/21/22 07:03) Chest 1 View, Ap/Pa Only (06/21/22 07:03) Influenza A And B By Pcr (06/21/22 07:03) Isolation Central Supply Req (06/21/22 07:03) Urine Bedside (06/21/22 07:03) Metoclopramide Injection (Reglan Injecti (06/21/22 07:15) Diphenhydramine Injection (Benadryl Inje (06/21/22 07:15) Ns Iv 1000 Ml (Sodium Chloride 0.9%) (06/21/22 07:03) Medications Given in ED Current Medications Medications Dose Ordered Sig/Marie Route Start Time Stop Time Status Last Admin Dose Admin Diphenhydramine HCl 25 mg ONCE ONCE IVP 06/21/22 07:15 06/21/22 07:16 DC 06/21/22 07:28 25 MG Metoclopramide HCl 5 mg ONCE ONCE IVP 06/21/22 07:15 06/21/22 07:16 DC 06/21/22 07:29 5 MG Vital Signs/I&O 06/21/22 06/21/22 06:48 06:48 Temp 36.7 Pulse 91 Resp 18 B/P (MAP) 112/80 (91) Pulse Ox 98 O2 Delivery Room Air Room Air Progress Progress Note : Time: 08:58 Progress Note Patient seen and examined, evaluation today includes physical exam, flu and COVID test, urine test and single view chest x-ray. Patient's exam pertinent for dry mucous membranes, nasal mucosal congestion, normal oropharynx. Slightly coarse breath sounds with no increased work of breathing or distress. No wheezes. Benign abdomen, no lower extremity edema. No acute neurologic deficits Differential diagnosis based on history and physical flu/COVID, pneumonia, viral syndrome/bronchitis. Labs reviewed, flu and COVID-negative. Chest x-ray is clear, urine test is negative. Patient is treated in the emergency department with a liter of IV fluids, Reglan, Benadryl and Toradol. She feels better. Vital signs are stable. Suspect viral syndrome/bronchitis. Patient is encouraged to use wjcf-dkb-qseacox cough and congestion medications. She is encouraged to orally hydrate. No clinical or objective findings to warrant further testing from the emergency department. All questions are sought and answered. Patient is stable for discharge. Departure Impression Primary Impression: Acute viral syndrome Additional Impression: Migraine Qualified Codes: G43.909 - Migraine, unspecified, not intractable, without status migrainosus Disposition: 01 HOME, SELF-CARE Condition: Improved Departure-Patient Inst. Decision time for Depature: 09:01 Referrals: [facility],LOCAL PHYSICIAN (PCP) Primary Care Physician Patient Instructions: Migraines (DC), Viral Syndrome (DC) Add. Discharge Instructions: Push lots of fluids at home over the next 24 hours to stay well-hydrated. Gatorade, flavored water are best. You can take djbg-xlo-vtswbdz ibuprofen 3 tablets which is 600 mg every 6 hours as needed for pain. Always take ibuprofen with food. Vflq-jgh-xsyenly cough medications such as DayQuil/NyQuil for symptoms of cough and congestion. Please follow-up with a primary care provider, return to the emergency room for any new, concerning or emergent complaints. Work/School Note: Work Release Form Date Seen in the Emergency Department: Jun 21, 2022 Return to Work: Jun 22, 2022 MARK JACKSON MD Jun 21, 2022 06:57
[2022-06-21] MEDS ORDERED: NS IV 1000 ML 1,000 ML IV STA (07:03)
[2022-06-21] MEDS ORDERED: METOCLOPRAMIDE INJ 10 MG/2 ML (REGLAN) IVP ONE (07:15)
[2022-06-21] MEDS ORDERED: diphenhydrAMINE 50 MG/ML INJ (BENADRYL) IVP ONE (07:15)
--- NOTE | 2022-06-21 07:24 | Diagnostic Imaging Report ---
INDICATION: Cough, chest pain and dyspnea. AP view of the chest is obtained. COMPARISON: No previous study is available for comparison at this time. FINDINGS: Heart size and pulmonary vasculature are within normal limits, and the lungs are clear, bilaterally. IMPRESSION: Unremarkable chest. Dictated by: Dictated on workstation # [id number]
[2022-06-21] MEDS ORDERED: KETOROLAC 30 MG/ML VIAL IVP ONE (09:00)
[2022-06-21 09:32] VITALS: BP 89/55
== END 2022-06-21 09:32 | disposition home or self-care (01) ==
LOC: EDUNIT# 06:27 → ER 06:28
DX: B34.9 Viral infection, unspecified (principal); R05.9 Cough, unspecified; R09.81 Nasal congestion; G43.909 Migraine, unspecified, not intractable, without status migrainosus; Z28.310 Unvaccinated for COVID-19; Z20.822 Contact with and (suspected) exposure to COVID-19
CPT/HCPCS: 71045; 84703; 87636